=== PATIENT | female | born 1995 | race Caucasian/White ===

== ENCOUNTER 2019-11-12 22:29 | Emergency (ER) | payer OTHER ==
--- NOTE | 2019-11-12 23:41 | ER Document Report ---
ED Medical Screen (RME) - General Chief Complaint: Vag Bleeding, +preg <12wks Stated Complaint: VAGINAL BLEEDING Time Seen by Provider: 11/12/19 23:38 Notes: HPI: 24-year-old female who is a G4, who believes she is approximately 6 to 7 weeks by dates presenting for an episode of vaginal bleeding and spotting today. Has had slight pelvic cramping over the last 2 to 3 days. No fever nausea vomiting. Has not yet been evaluated by OB for this PHYSICAL EXAMINATION: exam deferred in triage. No tenderness on palpation of the lower abdomen on limited exam in triage I have greeted and performed a rapid initial assessment of this patient. A comprehensive ED assessment and evaluation of the patient, analysis of test results and completion of medical decision making process will be conducted by an additional ED providers. Physical Exam - Vital signs Vitals: Temp Pulse Resp BP Pulse Ox 98.1 F 107 H 18 133/80 H 98 11/12/19 22:36 11/12/19 22:36 11/12/19 22:36 11/12/19 22:36 11/12/19 22:36 Course - Vital Signs Vital signs: Temp Pulse Resp BP Pulse Ox 98.1 F 107 H 18 133/80 H 98 11/12/19 22:36 11/12/19 22:36 11/12/19 22:36 11/12/19 22:36 11/12/19 22:36
[2019-11-13 00:20] LABS: ABSOLUTE BASOPHILS # (AUTO) 0.1 10^3/uL (0.0-0.2); ABSOLUTE EOSINOPHILS # (AUTO) 0.1 10^3/uL (0.0-0.6); ABSOLUTE LYMPHOCYTES (AUTO) 2.2 10^3/uL (0.5-4.7); ABSOLUTE MONOCYTES (AUTO) 0.5 10^3/uL (0.1-1.4); ABSOLUTE NEUT (AUTO) 5.5 10^3/uL (1.7-8.2); BASOPHILS % (AUTO) 0.6 % (0-2); EOSINOPHILS % (AUTO) 1.3 % (0-6); HEMATOCRIT 38.1 % (36.0-47.0); HEMOGLOBIN 13.7 g/dL (12.0-15.5); LYMPHOCYTES % (AUTO) 26.1 % (13-45); MEAN CORPUSCULAR HEMOGLOBIN 30.8 pg (27.0-33.4); MEAN CORPUSCULAR HGB CONC 35.9 g/dL (32.0-36.0); MEAN CORPUSCULAR VOLUME 86 fl (80-97); MONOCYTES % (AUTO) 6.3 % (3-13); PLATELET COUNT 208 10^3/uL (150-450); RED BLOOD COUNT 4.43 10^6/uL (3.72-5.28); RED CELL DISTRIBUTION WIDTH 13.2 % (11.5-14.0); SEGMENTED NEUTROPHILS % (AUTO) 65.7 % (42-78); TOTAL CELLS COUNTED % (AUTO) 100 %; WHITE BLOOD COUNT 8.3 10^3/uL (4.0-10.5)
[2019-11-13 00:22] LABS: APPEARANCE,URINE CLEAR; BILIRUBIN,URINE NEGATIVE (NEGATIVE); COLOR,URINE YELLOW; GLUCOSE, URINE NEGATIVE (NEGATIVE); KETONES,URINE NEGATIVE (NEGATIVE); LEUKOCYTE ESTERASE,URINE NEGATIVE (NEGATIVE); NITRITE,URINE NEGATIVE (NEGATIVE); PROTEIN,URINE NEGATIVE (NEGATIVE); URINE SPECIFIC GRAVITY 1.018; UROBILINOGEN,URINE NEGATIVE mg/dL (<2.0)
[2019-11-13 00:57] LABS: BLOOD UREA NITROGEN 17 mg/dL (7-20); CALCIUM 9.8 mg/dL (8.4-10.2); GLUCOSE 85 mg/dL (75-110)
[2019-11-13 00:58] LABS: ALBUMIN 4.4 g/dL (3.5-5.0); ALKALINE PHOSPHATASE 59 U/L (38-126); ANION GAP 7 (5-19); ASPARTATE AMINO TRANSFERASE 26 U/L (14-36); BILIRUBIN,TOTAL 0.4 mg/dL (0.2-1.3); CARBON DIOXIDE 26 mmol/L (22-30); CHLORIDE 103 mmol/L (98-107); POTASSIUM 4.3 mmol/L (3.6-5.0)
[2019-11-13 00:59] LABS: TOTAL PROTEIN 7.7 g/dL (6.3-8.2)
--- NOTE | 2019-11-13 02:05 | RADIOLOGY REPORT (SQ) ---
Indication: vag bleed Comparison: None available Technique: Both transabdominal and transvaginal ultrasound were performed of the pelvis. Transabdominal images provide a more complete overview of the pelvis, allowing visualization of anatomy and detection of pathology located beyond the field of view of transvaginal ultrasound. Transvaginal images provide superior resolution, facilitating improved characterization of pelvic structures and detection of pathology too small to be seen at transabdominal ultrasound. If both studies had not been performed, the likelihood of detecting and characterizing abnormalities relevant to the patients condition would have been substantially decreased. Findings: A gestational sac is visualized measuring 1.6 x 0.5 cm with an estimated gestational age of six weeks three days. A yolk sac is visualized. No crown-rump length is visualized. No significant free fluid is identified. Two areas of heterogeneity are noted adjacent to the gestational sac measuring 0.8 x 0.9 x 0.5 cm on the left side and 0.8 x 0.4 x 1.4 cm on the right side. The right ovary is normal in appearance.The right ovary measures 3.1 x 2.4 x 1.8 cm. The left ovary is normal in appearance.The left ovary measures 2.5 x 1.6 x 1.6 cm. Impression: 1. Gestational sac visualized within estimated gestational age of six weeks three days. Two areas of heterogeneity adjacent to the gestational sac are nonspecific but may represent subchorionic hemorrhage. Clinical correlation is advised with attention on follow-up as clinically indicated.
--- NOTE | 2019-11-13 02:37 | ER Document Report ---
ED GI/ - General Chief Complaint: Vaginal Bleeding Stated Complaint: VAGINAL BLEEDING Time Seen by Provider: 11/12/19 23:38 Primary Care Provider: [facility] [Provider Group] - Follow up in 1 week Notes: Patient is a 24-year-old female, A2 at 6 weeks gestation by last menstrual period, that comes emergency department for chief complaint of intermittent lower abdominal cramping and vaginal bleeding with spotting. Symptoms have been going on for the past 2 to 3 days. She denies nausea, vomiting, fever, dysuria, vaginal discharge, or any current symptoms. She does not currently have an QA ENGINEER, she takes no daily medications. - Related Data Allergies/Adverse Reactions: No Known Allergies Allergy (Verified 11/13/19 01:48) Past Medical History - General Information source: Patient - Social History Smoking Status: Never Smoker Frequency of alcohol use: None Lives with: Family Family History: Reviewed & Not Pertinent Patient has homicidal ideation: No - Medical History Medical History: Negative - Immunizations Immunizations up to date: Yes Hx Diphtheria, Pertussis, Tetanus Vaccination: Yes Review of Systems - Review of Systems Constitutional: No symptoms reported EENT: No symptoms reported Cardiovascular: No symptoms reported Respiratory: No symptoms reported Gastrointestinal: No symptoms reported Genitourinary: No symptoms reported Female Genitourinary: See HPI Musculoskeletal: No symptoms reported Skin: No symptoms reported Hematologic/Lymphatic: No symptoms reported Neurological/Psychological: No symptoms reported Physical Exam - Vital signs Vitals: Temp Pulse Resp BP Pulse Ox 98.1 F 107 H 18 133/80 H 98 11/12/19 22:36 11/12/19 22:36 11/12/19 22:36 11/12/19 22:36 11/12/19 22:36 - Notes Notes: GENERAL: Alert, interacts well. No acute distress. Smiling and well-appearing HEAD: Normocephalic, atraumatic. EYES: Pupils equal, round, and reactive to light. Extraocular movements intact. ENT: Oral mucosa moist, tongue midline. Oropharynx unremarkable. Airway patent. NECK: Full range of motion. Supple. Trachea midline. No lymphadenopathy. LUNGS: Clear to auscultation bilaterally, no wheezes, rales, or rhonchi. No respiratory distress. Non-tender chest wall. HEART: Regular rate and rhythm. No murmur ABDOMEN: Soft, non-tender. Non-distended. Bowel sounds present in all 4 quadrants. GENITOURINARY: Deferred EXTREMITIES: Moves all 4 extremities spontaneously. No edema, normal radial and dorsalis pedis pulses bilaterally. No cyanosis. BACK: no cervical, thoracic, lumbar midline tenderness. No saddle anesthesia, normal distal neurovascular exam. Moves all extremities in full range of motion. NEUROLOGICAL: Alert and oriented x3. Normal speech. Cranial nerves II through XII grossly intact. Strength 5/5 in all extremities. PSYCH: Slightly anxious, otherwise normal affect, normal mood. SKIN: Warm, dry, normal turgor. No rashes or lesions noted. Course - Re-evaluation Re-evalutation: Patient is alert and well-appearing, no current complaints on my evaluation, soft benign abdomen. Tachycardia and hypertension most likely initially from anxiety per patient, this resolved on recheck. CBC unremarkable, RhoGam is not indicated, hCG is appropriately elevated. Ultrasound showing intrauterine which is early with subchorionic hemorrhage but no concerning findings otherwise. I discussed this at length with patient, provided with copies of reports, discussed QA ENGINEER follow-up and return precautions. Patient states understanding and agreement with plan. - Vital Signs Vital signs: Temp Pulse Resp BP Pulse Ox 98.7 F 83 16 109/64 99 11/13/19 04:18 11/13/19 04:18 11/13/19 04:18 11/13/19 04:18 11/13/19 04:18 - Laboratory Result Diagrams: 11/13/19 00:01 11/13/19 00:01 Laboratory results interpreted by me: 11/13/19 11/13/19 00:01 00:01 Sodium 135.5 L Beta HCG, Quant 97019.00 H Urine Blood SMALL H Discharge - Discharge Clinical Impression: Vaginal bleeding affecting early Condition: Stable Disposition: HOME, SELF-CARE Additional Instructions: Your ultrasound shows a in the uterus at 6 weeks and 3 days. He also has small subchorionic bleeds as we discussed. The recommendation is pelvic rest. Avoid any significant physical activity including running, jumping, lifting, or sexual intercourse for the next week approximately or until cleared by QA ENGINEER. Follow-up with QA ENGINEER, see list referral and call for appointment. Your blood type is O+. Return for any concerning symptoms including severe pain, heavy bleeding, dizziness, passing out, fever, or any other concerning or worsening symptoms. Referrals: [facility] [Provider Group] - Follow up in 1 week
[2019-11-13 04:21] VITALS: BP 109/64
== END 2019-11-13 04:12 | disposition home or self-care (01) ==
LOC: ER 22:29
DX: O20.9 Hemorrhage in early pregnancy, unspecified (principal); O26.891 Other specified pregnancy related conditions, first trimester; R00.0 Tachycardia, unspecified; R10.30 Lower abdominal pain, unspecified; O16.1 Unspecified maternal hypertension, first trimester; Z3A.01 Less than 8 weeks gestation of pregnancy
CPT/HCPCS: 36415; 76817; 80053; 81001; 84702; 85025; 86900; 86901; 93976; 99284

== ENCOUNTER 2020-03-12 18:57 | Outpatient (CLI) | payer OTHER ==
[2020-03-12 20:16] LABS: APPEARANCE,URINE SLIGHTLY-CLOUDY; BILIRUBIN,URINE NEGATIVE (NEGATIVE); COLOR,URINE YELLOW; GLUCOSE, URINE NEGATIVE (NEGATIVE); KETONES,URINE NEGATIVE (NEGATIVE); LEUKOCYTE ESTERASE,URINE NEGATIVE (NEGATIVE); NITRITE,URINE NEGATIVE (NEGATIVE); PROTEIN,URINE NEGATIVE (NEGATIVE); URINE SPECIFIC GRAVITY 1.024; UROBILINOGEN,URINE NEGATIVE mg/dL (<2.0)
[2020-03-12 20:38] LABS: URINE AMPHETAMINES SCREEN NEGATIVE; URINE BARBITURATES SCREEN NEGATIVE; URINE BENZODIAZEPINES SCREEN NEGATIVE; URINE COCAINE SCREEN NEGATIVE; URINE MARIJUANA (THC) SCREEN NEGATIVE; URINE METHADONE SCREEN NEGATIVE; URINE PHENCYCLIDINE SCREEN NEGATIVE
== END 2020-03-12 20:23 | disposition home or self-care (01) ==
LOC: LC 18:57
PROVIDERS: ATTEND Obstetrics & Gynecology
DX: O9A.212 Injury, poisoning and certain other consequences of external causes complicating pregnancy, second trimester (principal); V40.9XXD Unspecified car occupant injured in collision with pedestrian or animal in traffic accident, subsequent encounter; R10.30 Lower abdominal pain, unspecified; Z3A.22 22 weeks gestation of pregnancy
CPT/HCPCS: 80307; 81001